=== PATIENT | female | born 1945 | race Two or more races ===

== ENCOUNTER → 2022-05-11 07:16 | Outpatient (CLI) | payer OTHER | END | disposition home or self-care (01) | LOC: NUCLEAR 07:00 | PROVIDERS: ATTEND General Practice | DX: E04.0 Nontoxic diffuse goiter (principal); E11.69 Type 2 diabetes mellitus with other specified complication; E78.2 Mixed hyperlipidemia; E55.9 Vitamin D deficiency, unspecified; Z68.22 Body mass index [BMI] 22.0-22.9, adult; E05.00 Thyrotoxicosis with diffuse goiter without thyrotoxic crisis or storm; E11.40 Type 2 diabetes mellitus with diabetic neuropathy, unspecified; E56.8 Deficiency of other vitamins | CPT/HCPCS: 78013; A9512 ==

== ENCOUNTER 2022-07-13 13:54 | Outpatient (CLI) | payer OTHER | END 2022-07-13 13:55 | disposition home or self-care (01) | LOC: SONOGRAMA 13:54 | PROVIDERS: ATTEND General Practice | DX: E04.1 Nontoxic single thyroid nodule (principal) ==

== ENCOUNTER 2023-07-31 10:50 | Outpatient (CLI) | payer OTHER | END 2023-07-31 10:51 | disposition home or self-care (01) | LOC: MAMO-SONO 10:50 | PROVIDERS: ATTEND General Practice | DX: Z12.31 Encounter for screening mammogram for malignant neoplasm of breast (principal); N64.4 Mastodynia ==

== ENCOUNTER 2023-07-31 10:52 | Outpatient (CLI) | payer OTHER | END 2023-07-31 10:53 | disposition home or self-care (01) | LOC: NUCLEAR 10:52 | PROVIDERS: ATTEND General Practice | DX: M81.0 Age-related osteoporosis without current pathological fracture (principal); M51.36 Other intervertebral disc degeneration, lumbar region | CPT/HCPCS: 72148 ==

== ENCOUNTER 2024-10-24 22:34 | Emergency (ER) | payer OTHER ==
[~2024-10-24] VITALS: Ht 160 cm; Wt 59.0 kg
[2024-10-24] MEDS ORDERED: DONEPEZIL HCL10 MG PO (23:04)
[2024-10-24] MEDS ORDERED: PEPCID20 MG PO (23:04)
[2024-10-24] MEDS ORDERED: TOPROL XL25 M1 PO (23:04)
[2024-10-24] MEDS ORDERED: GLUMETZA500 MG PO (23:04)
[2024-10-24] MEDS ORDERED: ATORVASTATIN CA40 MG PO (23:04)
[2024-10-24] MEDS ORDERED: VENLAFAXINE HC150 M1 PO (23:05)
[2024-10-25] MEDS ORDERED: HYOSCYAMINE SULFATE 0.125 MG TAB.SUBL SL ONE (02:00)
[2024-10-25] MEDS ORDERED: PROMETHAZINE HCL 25 MG/ML AMPUL IM STA (02:00)
[2024-10-25] MEDS ORDERED: FAMOtidine 10 MG/ML (4ML VIAL) IV PUSH STA (02:01)
[2024-10-25] MEDS ORDERED: ONDANSETRON HCL 2 MG/ML VIAL IV STA (02:01)
[2024-10-25] MEDS ORDERED: 0.9 % SODIUM CHLORIDE 1,000 ML IV STA (02:01)
[2024-10-25] MEDS ORDERED: HYOSCYAMINE SULFATE 0.125 MG TAB.SUBL ONE (02:05)
[2024-10-25] MEDS ORDERED: ONDANSETRON HCL 2 MG/ML VIAL ONE (02:05)
[2024-10-25] MEDS ORDERED: PROMETHAZINE HCL 25 MG/ML AMPUL ONE (02:05)
[2024-10-25] MEDS ORDERED: FAMOTIDINE/PF 20 MG/2 ML VIAL ONE (02:06)
[2024-10-25 02:44] LABS: HEMATOCRIT 38.1 % (36.0-45.00); HEMOGLOBIN 12.8 g/dL (12.0-15.00); MEAN CORPUSCULAR HEMOGLOBIN 29.6 pg (27.00-32.0); MEAN CORPUSCULAR HGB CONC 33.6 g/dl (32.0-36.0); PLATELET COUNT 287 K/uL (150-450); RED BLOOD COUNT 4.33 M/uL (4.00-6.00); RED CELL DISTRIBUTION WIDTH 12.7 % (11.5-14.5)
[2024-10-25 03:20] LABS: CALCIUM 9.4 mg/dL (8.5-10.1); CREATININE SERUM 0.65 mg/dL (0.55-1.02); GFR 88.15; POTASSIUM 3.83 mEq/L (3.5-5.1)
== END 2024-10-25 05:34 | disposition home or self-care (01) ==
LOC: ER 22:37
DX: K52.9 Noninfective gastroenteritis and colitis, unspecified (principal); E11.9 Type 2 diabetes mellitus without complications; Z79.84 Long term (current) use of oral hypoglycemic drugs; I10 Essential (primary) hypertension